=== PATIENT | male | born 1990 | race Two or more races ===

== ENCOUNTER 2019-09-03 21:04 | Emergency (ER) | payer OTHER ==
[~2019-09-03] VITALS: Ht 177.8 cm; Wt 97.5 kg
[2019-09-03 22:40] VITALS: BP 134/93
[2019-09-03] MEDS ORDERED: cefTRIAXone SOD 1,000 MG VL IM ONE (23:15)
[2019-09-03 23:22] LABS: Hepatitis B Surface Antibody Negative
[2019-09-04 00:28] LABS: Hepatitis B Surface Antigen Negative (Negative)
== END 2019-09-03 23:54 | disposition home or self-care (01) ==
LOC: ER 21:08
DX: S61.230A Puncture wound without foreign body of right index finger without damage to nail, initial encounter (principal); X58.XXXA Exposure to other specified factors, initial encounter; Y93.89 Activity, other specified; Y92.89 Other specified places as the place of occurrence of the external cause; Y99.0 Civilian activity done for income or pay
CPT/HCPCS: 36415; 86703; 86706; 86803; 87340; 96372; 99283; J0696

== ENCOUNTER 2019-09-15 12:09 | Emergency (ER) | payer OTHER ==
[~2019-09-15] VITALS: Ht 177.8 cm; Wt 95.3 kg
[2019-09-15 12:31] LABS: Urine WBC None Seen /hpf (0 - 3)
[2019-09-15 12:37] LABS: Urine Bacteria NONE SEEN /hpf (None Seen); Urine Blood Negative /uL (Negative); Urine Mucus FEW (None Seen); Urine Specific Gravity 1.024 (1.001-1.035)
[2019-09-15 12:56] LABS: Eosinophils # (auto) 0.2 uL; Hemoglobin 16.1 g/dL (13.5-17.5); Lymphocytes # (auto) 1.8 uL; Mean Corpuscular Hemoglobin 25.7 pg (28.0-32.0); Monocytes # (auto) 0.3 uL; Neutrophils # (auto) 3.4 uL; Platelet Count (auto) 229 10^3/uL (140-450)
[2019-09-15 12:58] LABS: Basophils # (auto) 0.1 uL; Basophils % (auto) 1.1 % (0.0-2.0); Eosinophils % (auto) 3.5 % (0.0-7.0); Mean Corpuscular Hgb Conc. 33.4 g/dL (32.0-36.0); Mean Corpuscular Volume 76.9 fL (80.0-100.0); Monocytes % (auto) 5.7 % (0.0-12.0); Neutrophils % (auto) 58.7 % (37.0-80.0); Nucleated Red Blood Cells % 0.1 %; Red Blood Cells 6.24 10^6/uL (4.5-5.90); Red Cell Distribution Width 14.2 % (11.8-14.3); White Blood Cell 5.7 10^3/uL (4.4-10.8)
[2019-09-15 13:11] LABS: Albumin 4.2 g/dL (3.4-5.0); Potassium 4.6 mmol/L (3.5-5.1)
[2019-09-15 13:18] LABS: BUN/Creatinine Ratio 11.3; Bilirubin, Total 0.6 mg/dL (0.2-1.0); Total Protein 7.9 g/dL (6.4-8.2)
[2019-09-15 15:26] VITALS: BP 148/94
== END 2019-09-15 15:30 | disposition home or self-care (01) ==
LOC: ER 12:15
DX: R11.2 Nausea with vomiting, unspecified (principal); T50.995A Adverse effect of other drugs, medicaments and biological substances, initial encounter; E11.9 Type 2 diabetes mellitus without complications; Y92.89 Other specified places as the place of occurrence of the external cause
CPT/HCPCS: 36415; 80053; 81001; 83690; 85025

== ENCOUNTER → 2019-09-27 | Outpatient (CLI) | payer OTHER ==
[2019-09-27 14:24] LABS: Albumin 4.4 g/dL (3.4-5.0)
[2019-09-27 14:29] LABS: Bilirubin, Direct 0.2 mg/dL (0-0.2); Bilirubin, Total 0.9 mg/dL (0.2-1.0); Total Protein 7.9 g/dL (6.4-8.2)
== END | disposition home or self-care (01) ==
LOC: LAB 12:10
PROVIDERS: ATTEND Preventive Medicine Preventive Medicine/Occupational Environmental Medicine
DX: Z77.21 Contact with and (suspected) exposure to potentially hazardous body fluids (principal)
CPT/HCPCS: 36415; 80076

== ENCOUNTER 2023-11-02 17:19 | Emergency (ER) | payer OTHER ==
[~2023-11-02] VITALS: Ht 182.9 cm; Wt 100.0 kg
[2023-11-02 18:42] LABS: Basophils # (auto) 0 10 ^3/uL (0-0.2); Basophils % (auto) 0.2 % (0.0-2.0); Eosinophils # (auto) 0.1 10 ^3/uL (0-0.8); Hematocrit 48.2 % (41.0-53.0); Lymphocytes # (auto) 1.3 10 ^3/uL (0.4-5.4); Monocytes # (auto) 0.7 10 ^3/uL (0-1.3); White Blood Cell 16.5 10^3/uL (4.4-10.8)
[2023-11-02 18:44] LABS: Eosinophils % (auto) 0.4 % (0.0-7.0); Hemoglobin 16.1 g/dL (13.5-17.5); Lymphocytes % (auto) 7.8 % (10.0-50.0); Mean Corpuscular Hemoglobin 25.1 pg (28.0-32.0); Mean Corpuscular Hgb Conc. 33.4 g/dL (32.0-36.0); Mean Corpuscular Volume 75.2 fL (80.0-100.0); Neutrophils # (auto) 14.4 10 ^3/uL (1.6-8.6); Neutrophils % (auto) 87.6 % (37.0-80.0); Nucleated Red Blood Cells % 0.1 %; Red Blood Cells 6.42 10^6/uL (4.5-5.90)
[2023-11-02 18:57] LABS: INR 1.01 (0.9-1.15); Partial Thromboplastin Time 23.5 SEC (24.5-34.5); Prothrombin Time 10.6 sec (9.3-11.8)
[2023-11-02 19:02] LABS: Alanine Aminotransferase 81 U/L (7-40); Albumin 4.6 g/dL (3.2-4.8); Alkaline Phosphatase 90 U/L (46-116); Anion Gap 7 (5-15); Aspartate Aminotransferase 77 U/L (13-40); BUN/Creatinine Ratio 10.4 (10.0-20.0); Bilirubin, Total 0.5 mg/dL (0.2-1.0); Blood Urea Nitrogen 13 mg/dL (9-23); Calcium 10.3 mg/dL (8.5-10.1); Carbon Dioxide 28 mmol/L (20-30); Chloride 102 mmol/L (98-107); Potassium 4.2 mmol/L (3.5-5.1); Sodium 137 mmol/L (136-145); Total Protein 6.8 g/dL (5.7-8.2)
[2023-11-02 19:16] LABS: Glucose 480 mg/dL (74-106)
[2023-11-02] MEDS ORDERED: MORPHINE SULFATE 4 MG/ML SYR/VIAL IM ONE (21:00)
[2023-11-02] MEDS ORDERED: ONDANSETRON ODT 4 MG TAB PO ONE (21:00)
[2023-11-02] MEDS ORDERED: INSULIN LISPRO (HUMAN) 100 UNITS/ML ML SC ONE (23:15)
[2023-11-02] MEDS ORDERED: metFORMIN HYDROCHLORIDE 500 MG TAB PO ONE (23:45)
[2023-11-03 01:35] VITALS: BP 124/75; PULSE 91; RESP 18; TEMP 99.5; O2SAT 96
== END 2023-11-03 01:40 | disposition short-term general hospital (02) ==
LOC: ER 17:19 → EDBD 17:19 → ER 11-03 01:40
DX: T14.8XXA Other injury of unspecified body region, initial encounter (principal); E11.65 Type 2 diabetes mellitus with hyperglycemia; R51.9 Headache, unspecified; W18.39XA Other fall on same level, initial encounter; Y93.89 Activity, other specified; Y92.89 Other specified places as the place of occurrence of the external cause; Y99.8 Other external cause status; M54.2 Cervicalgia
CPT/HCPCS: 36415; 70450; 71045; 72125; 72128; 72131; 80053; 82962; 85025; 85610; 85730; 96372; 99285; J2270; Q0162